=== PATIENT | male | born 1985 | race African-American/Black ===

== ENCOUNTER 2017-09-09 12:49 | Emergency (ER) | payer OTHER ==
[~2017-09-09] VITALS: Ht 182.9 cm; Wt 136.1 kg
[2017-09-09 12:55] VITALS: TEMP 99.1
[2017-09-09 13:39] LABS: PLATELET COUNT 348 K/uL (142-355)
[2017-09-09 13:46] LABS: POTASSIUM 5.4 mmol/L (3.6-5.2)
[2017-09-09 14:42] VITALS: BP 154/88
== END 2017-09-09 14:42 | disposition home or self-care (01) ==
LOC: ED 12:49
DX: J68.0 Bronchitis and pneumonitis due to chemicals, gases, fumes and vapors (principal)
CPT/HCPCS: 36415; 80053; 85027; 96374; 99284; J2930

== ENCOUNTER 2017-09-09 19:35 | Emergency (ER) | payer OTHER ==
[~2017-09-09] VITALS: Ht 182.9 cm; Wt 145.2 kg
[2017-09-09 19:58] VITALS: BP 144/93; TEMP 97.2
== END 2017-09-09 20:07 | disposition home or self-care (01) ==
LOC: ED 19:35
DX: Z01.30 Encounter for examination of blood pressure without abnormal findings (principal)
CPT/HCPCS: 99281

== ENCOUNTER 2017-11-08 17:52 | Emergency (ER) | payer OTHER ==
[~2017-11-08] VITALS: Ht 182.9 cm; Wt 145.2 kg
[2017-11-08 19:08] LABS: PLATELET COUNT 350 K/uL (142-355)
[2017-11-08 19:13] LABS: POTASSIUM 3.3 mmol/L (3.6-5.2)
[2017-11-08 22:57] VITALS: BP 119/66; TEMP 98.3
== END 2017-11-08 23:06 | disposition home or self-care (01) ==
LOC: ED 17:52
PROVIDERS: Family Medicine
DX: I10 Essential (primary) hypertension (principal)
CPT/HCPCS: 80048; 85027; 93005; 96374; 96375; 99284; J0360; J2060